=== PATIENT | female | born 1930 | race African-American/Black ===

== ENCOUNTER 2018-11-03 19:16 | Inpatient (IN) | payer MEDICARE, MEDICAID ==
[~2018-11-03] VITALS: Ht 167.6 cm; Wt 78.5 kg
[~2018-11-03 19:16] MED LIST: AMLO2.5T2 PO; AP25; ASPI-1079 PO; HYDR-4135 PO; INSLAN SQ; LEVO250T58 PO; MECL25TA3 PO; NVLG73 SUBCUT
[2018-11-03] MEDS ORDERED: SODIUM CHLORIDE 0.9% 1,000 ML IV ONE ×2 (19:42→21:00)
[2018-11-03 20:23] LABS: HEMATOCRIT. 41.9 % (36.0-48.0); HEMOGLOBIN. 13.2 g/dL (12.0-16.0); MEAN CORPUSCULAR HEMOGLOBIN 27.7 pg (28.0-32.0); MEAN PLATELET VOLUME 10.4 fl (7.4-10.4); PLATELET 152 x1000/uL (130-400); RED BLOOD CELL COUNT 4.76 mill/uL (4.2-5.4); RED CELL DISTRIBUTION WIDTH 13.5 % (11.6-14.6)
[2018-11-03 20:32] LABS: CLARITY URINE CLOUDY (CLEAR); COLOR URINE YELLOW (YELLOW); KETONES URINE NEGATIVE (NEGATIVE); LEUKOCYTE ESTERASE URINE NEGATIVE (NEGATIVE); NITRITE URINE NEGATIVE (NEGATIVE); OCCULT BLOOD URINE NEGATIVE (NEGATIVE); PROTEIN URINE NEGATIVE (NEGATIVE); SPECIFIC GRAVITY URINE 1.025 (1.005-1.030); UROBILINOGEN URINE 0.2 E.U./dL (0.2-1.0)
[2018-11-03 20:36] LABS: BETA HYDROXYBUTYRATE 0.4 mMol/L (0.0-0.3)
[2018-11-03 20:42] LABS: CHLORIDE 81 mEq/L (98-107)
[2018-11-03] MEDS ORDERED: INSULIN REGULAR (DRIP) 100 UNITS in SODIUM CHLORIDE 0.9% 100 ML IV ONE (20:44)
[2018-11-03 21:08] LABS: BG BASE EXCESS -3.6 mmol/L (-2.0-2.0); BG CARBOXYHEMOGLOBIN 0.7 % (0.5-1.5); BG DEOXYHEMOGLOBIN 3.1 % (0.0-5.0); BG FRACTION INSPIRED OXYGEN 21; BG HCO3 ACT 19.9 mmol/L (22.0-26.0); BG METHEMOGLOBIN 0.4 % (0.0-1.5); BG OXYGEN SATURATION 96.9 % (92.0-98.5); BG OXYHEMOGLOBIN 95.8 % (94.0-97.0); BG PCO2 31.1 mmHg (35.0-45.0); BG PH 7.423 (7.350-7.450); BG PO2 89.6 mmHg (75.0-100.0); BG SAMPLE SITE RIGHT RADIAL; BG TOTAL HEMOGLOBIN 12.2 g/dL (12.0-18.0); BG VENT MODE ROOM AIR
[2018-11-03 21:50] LABS: PLATELET ESTIMATE NORMAL
[2018-11-03 22:06] LABS: PHOSPHORUS 1.7 mg/dL (2.5-4.9)
[2018-11-03 22:31] VITALS: BP 158/87
[2018-11-03 23:00] VITALS: BP_SYST 147; BP_SYST 153; BP_DIAS 54; BP_DIAS 73
[2018-11-03] MEDS ORDERED: ONDANSETRON HCL 4MG/2ML INJ IV PRN (23:15)
[2018-11-03] MEDS ORDERED: INSULIN REGULAR (DRIP) 100 UNITS in SODIUM CHLORIDE 0.9% 99 ML IV PRN (23:15)
[2018-11-03 23:30] VITALS: BP 129/63
[2018-11-03] MEDS ORDERED: MAGNESIUM 1 G PREMIX 100 ML IV PRN (23:45)
[2018-11-03] MEDS ORDERED: DEXTROSE 50% WATER 50ML SYRINGE IV PRN (23:45)
[2018-11-03] MEDS ORDERED: POTASSIUM CHLORIDE INJ 40 MEQ in DEXT 5% WATER 250 ML IV PRN (23:45)
[2018-11-04] VITALS (37 sets, daily range): BP systolic 26–146; BP diastolic 17–72
[2018-11-04] MEDS ORDERED: INSULIN REGULAR (DRIP) 100 UNITS in SODIUM CHLORIDE 0.9% 100 ML IV SCH ×2
[2018-11-04] MEDS: BLOOD SUGAR DIAGNOSTIC STRIP TEST SCH ×14 (00:16→20:54)
[2018-11-04] MEDS: SODIUM CHLORIDE 0.9% 1,000 ML IV SCH ×4 (00:18→20:56)
[2018-11-04 07:38] LABS: HEMATOCRIT. 29.7 % (36.0-48.0); HEMOGLOBIN. 10.2 g/dL (12.0-16.0); MEAN CORPUSCULAR HEMOGLOBIN 27.7 pg (28.0-32.0); MEAN CORPUSCULAR VOLUME 80.4 fL (81.0-99.0); MEAN PLATELET VOLUME 9.6 fl (7.4-10.4); PLATELET 159 x1000/uL (130-400); RED CELL DISTRIBUTION WIDTH 13.1 % (11.6-14.6)
[2018-11-04] MEDS: ASPIRIN 81MG TABLET PO SCH (08:50)
[2018-11-04] MEDS: HYDRALAZINE HCL 50MG TABLET PO SCH ×2 (08:50→20:53)
[2018-11-04] MEDS: AMLODIPINE 2.5MG TABLET PO SCH ×2 (08:51→20:53)
[2018-11-04] MEDS: MECLIZINE 25MG TABLET PO SCH ×3 (08:51→17:41)
[2018-11-04] MEDS ORDERED: DEXT 5%/0.45% NACL 1000ML 1,000 ML IV SCH (11:00)
[2018-11-04] MEDS ORDERED: DEXTROSE 50% WATER 50ML SYRINGE IV PRN (11:15)
[2018-11-04] MEDS: INSULIN GLARGINE UD 100 UNITS/ML SYR SUBCUT SCH (12:24)
[2018-11-04] MEDS: PIPERACILLIN/TAZ 3.375G PREMIX 50 ML IV SCH ×2 (12:26→17:41)
[2018-11-04] MEDS: INSULIN LISPRO 100 UNITS/ML SUBCUT SCH ×5 (12:58→21:04)
[2018-11-04 22:57] LABS: NUCLEATED RED BLOOD CELLS 1 /100 WBC; PLATELET ESTIMATE NORMAL
[2018-11-05] VITALS (14 sets, daily range): BP systolic 117–196; BP diastolic 36–66
[2018-11-05] MEDS: PIPERACILLIN/TAZ 3.375G PREMIX 50 ML IV SCH ×3 (02:13→17:37)
[2018-11-05 05:48] LABS: HEMATOCRIT. 32.5 % (36.0-48.0); HEMOGLOBIN. 10.9 g/dL (12.0-16.0); MEAN CORPUSCULAR HEMOGLOBIN 27.2 pg (28.0-32.0); MEAN CORPUSCULAR VOLUME 81.1 fL (81.0-99.0); MEAN PLATELET VOLUME 9.5 fl (7.4-10.4); PLATELET 142 x1000/uL (130-400); RED CELL DISTRIBUTION WIDTH 13.7 % (11.6-14.6)
[2018-11-05 06:13] LABS: PHOSPHORUS 1.7 mg/dL (2.5-4.9)
[2018-11-05] MEDS: BLOOD SUGAR DIAGNOSTIC STRIP TEST SCH ×4 (07:50→20:35)
[2018-11-05] MEDS: MECLIZINE 25MG TABLET PO SCH ×3 (09:05→17:34)
[2018-11-05] MEDS: HYDRALAZINE HCL 25MG TABLET PO SCH ×2 (09:05→20:35)
[2018-11-05] MEDS: AMLODIPINE 2.5MG TABLET PO SCH ×2 (09:05→20:35)
[2018-11-05] MEDS: ASPIRIN 81MG TABLET PO SCH (09:05)
[2018-11-05] MEDS: INSULIN LISPRO 100 UNITS/ML SUBCUT SCH ×7 (09:09→20:36)
[2018-11-05] MEDS: SODIUM CHLORIDE 0.9% 1,000 ML IV SCH (09:29)
[2018-11-05] MEDS: INSULIN GLARGINE UD 100 UNITS/ML SYR SUBCUT SCH (09:43)
[2018-11-05] MEDS ORDERED: POTASSIUM PHOS,M-BASIC-D-BASIC 15 MMOL in DEXT 5% WATER 245 ML IV SCH (10:00)
[2018-11-05 10:08] LABS: CREATINE KINASE 35 IU/L (26-192)
[2018-11-05 10:38] LABS: PLATELET ESTIMATE NORMAL
[2018-11-05] MEDS: ACETAMINOPHEN 650MG/20.3ML UDC PO PRN ×2 (14:04→21:54)
[2018-11-06] VITALS: BP 132/61
[2018-11-06] MEDS: PIPERACILLIN/TAZ 3.375G PREMIX 50 ML IV SCH ×3 (01:50→17:19)
[2018-11-06] MEDS: SODIUM CHLORIDE 0.9% 1,000 ML IV SCH ×2 (01:57→17:19)
[2018-11-06 04:00] VITALS: BP 133/56
[2018-11-06] MEDS: BLOOD SUGAR DIAGNOSTIC STRIP TEST SCH ×4 (06:21→20:50)
[2018-11-06] MEDS: INSULIN LISPRO 100 UNITS/ML SUBCUT SCH ×7 (06:21→20:50)
[2018-11-06 07:31] LABS: HEMATOCRIT. 33.4 % (36.0-48.0); HEMOGLOBIN. 11.2 g/dL (12.0-16.0); MEAN CORPUSCULAR HEMOGLOBIN 27.5 pg (28.0-32.0); MEAN CORPUSCULAR VOLUME 81.6 fL (81.0-99.0); MEAN PLATELET VOLUME 9.5 fl (7.4-10.4); PLATELET 143 x1000/uL (130-400); RED BLOOD CELL COUNT 4.09 mill/uL (4.2-5.4); RED CELL DISTRIBUTION WIDTH 13.8 % (11.6-14.6)
[2018-11-06 08:00] VITALS: BP 121/59
[2018-11-06 08:19] LABS: *CREATININE RANDOM URINE 41.5 mg/dL (Not Estab.)
[2018-11-06] MEDS: ASPIRIN 81MG TABLET PO SCH (08:36)
[2018-11-06] MEDS: HYDRALAZINE HCL 25MG TABLET PO SCH ×2 (08:36→20:50)
[2018-11-06] MEDS: MECLIZINE 25MG TABLET PO SCH ×3 (08:36→17:19)
[2018-11-06] MEDS: AMLODIPINE 2.5MG TABLET PO SCH ×2 (08:36→20:50)
[2018-11-06] MEDS: INSULIN GLARGINE UD 100 UNITS/ML SYR SUBCUT SCH (11:56)
[2018-11-06 12:00] VITALS: BP 106/48
[2018-11-06 14:28] LABS: PLATELET ESTIMATE NORMAL
[2018-11-06 16:00] VITALS: BP 160/99
[2018-11-06 20:00] VITALS: BP 168/75
[2018-11-07] VITALS: BP 160/59
[2018-11-07] MEDS: PIPERACILLIN/TAZ 3.375G PREMIX 50 ML IV SCH ×3 (01:01→19:42)
[2018-11-07 04:00] VITALS: BP 140/74
[2018-11-07] MEDS: BLOOD SUGAR DIAGNOSTIC STRIP TEST SCH ×4 (06:34→20:12)
[2018-11-07] MEDS: INSULIN LISPRO 100 UNITS/ML SUBCUT SCH ×7 (06:35→20:29)
[2018-11-07 08:00] VITALS: BP 132/69
[2018-11-07 08:25] LABS: HEMATOCRIT. 32.6 % (36.0-48.0); HEMOGLOBIN. 10.9 g/dL (12.0-16.0); MEAN CORPUSCULAR VOLUME 80.6 fL (81.0-99.0); MEAN PLATELET VOLUME 8.6 fl (7.4-10.4); PLATELET 146 x1000/uL (130-400); RED BLOOD CELL COUNT 4.05 mill/uL (4.2-5.4); RED CELL DISTRIBUTION WIDTH 14.1 % (11.6-14.6)
[2018-11-07] MEDS: ASPIRIN 81MG TABLET PO SCH (10:27)
[2018-11-07] MEDS: MECLIZINE 25MG TABLET PO SCH ×3 (10:27→18:10)
[2018-11-07] MEDS: HYDRALAZINE HCL 25MG TABLET PO SCH ×2 (10:28→20:22)
[2018-11-07] MEDS: AMLODIPINE 2.5MG TABLET PO SCH ×2 (10:28→20:22)
[2018-11-07] MEDS: INSULIN GLARGINE UD 100 UNITS/ML SYR SUBCUT SCH (10:30)
[2018-11-07 10:51] LABS: PLATELET ESTIMATE NORMAL
[2018-11-07 12:00] VITALS: BP 155/62
[2018-11-07] MEDS ORDERED: ONDANSETRON HCL 4MG/2ML INJ IV PRN (13:45)
[2018-11-07 16:00] VITALS: BP 131/62
[2018-11-07] MEDS: SODIUM CHLORIDE 0.9% 1,000 ML IV SCH (19:43)
[2018-11-07 20:00] VITALS: BP 143/62
[2018-11-07] MEDS: ACETAMINOPHEN 650MG/20.3ML UDC PO PRN (23:54)
[2018-11-08] VITALS: BP 156/66
[2018-11-08] MEDS: PIPERACILLIN/TAZ 3.375G PREMIX 50 ML IV SCH ×3 (02:35→18:01)
[2018-11-08 04:00] VITALS: BP 150/84
[2018-11-08] MEDS: BLOOD SUGAR DIAGNOSTIC STRIP TEST SCH ×4 (05:48→20:09)
[2018-11-08] MEDS: INSULIN LISPRO 100 UNITS/ML SUBCUT SCH ×4 (06:31→20:26)
[2018-11-08] MEDS ORDERED: INSULIN LISPRO 100 UNITS/ML SUBCUT SCH (06:45)
[2018-11-08 08:00] VITALS: BP 148/73
[2018-11-08 08:14] LABS: HEMATOCRIT. 29.1 % (36.0-48.0); HEMOGLOBIN. 9.9 g/dL (12.0-16.0); MEAN CORPUSCULAR HEMOGLOBIN 27.4 pg (28.0-32.0); MEAN CORPUSCULAR VOLUME 80.6 fL (81.0-99.0); MEAN PLATELET VOLUME 9.1 fl (7.4-10.4); PLATELET 151 x1000/uL (130-400); RED BLOOD CELL COUNT 3.61 mill/uL (4.2-5.4); RED CELL DISTRIBUTION WIDTH 13.9 % (11.6-14.6)
[2018-11-08] MEDS: ASPIRIN 81MG TABLET PO SCH (09:33)
[2018-11-08] MEDS: MECLIZINE 25MG TABLET PO SCH ×3 (09:33→17:59)
[2018-11-08] MEDS: HYDRALAZINE HCL 25MG TABLET PO SCH ×2 (09:33→20:20)
[2018-11-08] MEDS: ACETAMINOPHEN 650MG/20.3ML UDC PO PRN ×2 (09:34→20:20)
[2018-11-08] MEDS: SODIUM CHLORIDE 0.9% 1,000 ML IV SCH (09:34)
[2018-11-08] MEDS: AMLODIPINE 2.5MG TABLET PO SCH ×2 (09:34→20:20)
[2018-11-08] MEDS: INSULIN GLARGINE UD 100 UNITS/ML SYR SUBCUT SCH (09:35)
[2018-11-08 10:23] LABS: PHOSPHORUS 3.7 mg/dL (2.5-4.9)
[2018-11-08 10:50] LABS: PLATELET ESTIMATE NORMAL
[2018-11-08 12:00] VITALS: BP 146/59
[2018-11-08 16:00] VITALS: BP 160/73
[2018-11-08 20:00] VITALS: BP 164/80
[2018-11-09] VITALS (7 sets, daily range): BP systolic 140–170; BP diastolic 55–76
[2018-11-09] MEDS: PIPERACILLIN/TAZ 3.375G PREMIX 50 ML IV SCH ×2 (02:33→10:11)
[2018-11-09] MEDS: ACETAMINOPHEN 650MG/20.3ML UDC PO PRN ×2 (04:05→10:11)
[2018-11-09] MEDS: SODIUM CHLORIDE 0.9% 1,000 ML IV SCH ×2 (05:45→12:25)
[2018-11-09] MEDS: BLOOD SUGAR DIAGNOSTIC STRIP TEST SCH ×4 (06:20→21:16)
[2018-11-09 06:24] LABS: HEMATOCRIT. 28.9 % (36.0-48.0); HEMOGLOBIN. 9.8 g/dL (12.0-16.0); MEAN CORPUSCULAR HEMOGLOBIN 27.5 pg (28.0-32.0); MEAN CORPUSCULAR VOLUME 80.8 fL (81.0-99.0); MEAN PLATELET VOLUME 8.9 fl (7.4-10.4); PLATELET 177 x1000/uL (130-400); RED BLOOD CELL COUNT 3.57 mill/uL (4.2-5.4); RED CELL DISTRIBUTION WIDTH 14.3 % (11.6-14.6)
[2018-11-09] MEDS: INSULIN LISPRO 100 UNITS/ML SUBCUT SCH ×4 (07:01→21:00)
[2018-11-09] MEDS: AMLODIPINE 2.5MG TABLET PO SCH ×2 (08:43→22:17)
[2018-11-09] MEDS: HYDRALAZINE HCL 25MG TABLET PO SCH ×2 (08:43→22:16)
[2018-11-09] MEDS: MECLIZINE 25MG TABLET PO SCH ×3 (08:43→16:20)
[2018-11-09] MEDS: ASPIRIN 81MG TABLET PO SCH (08:44)
[2018-11-09] MEDS: INSULIN GLARGINE UD 100 UNITS/ML SYR SUBCUT SCH (10:26)
[2018-11-09] MEDS ORDERED: BUPIVACAINE HCL/DEXTROSE/PF 0.75% 2ML AMP INJ ONE (16:27)
[2018-11-09] MEDS ORDERED: BUPIVACAINE HCL/PF 0.5% (5MG/ML) 10ML ONE (16:50)
[2018-11-09] MEDS ORDERED: LIDOCAINE HCL 1% 20ML VIAL (Pyxis) INJ ONE (16:50)
[2018-11-09] MEDS ORDERED: BACITRACIN 50,000 UNITS/VIAL ONE (16:50)
[2018-11-09] MEDS ORDERED: MIDAZOLAM HCL 2 MG/2 ML VIAL ONE (17:22)
[2018-11-09] MEDS ORDERED: VANCOMYCIN 1 G PREMIX 200 ML IV SCH (18:00)
[2018-11-09] MEDS ORDERED: MORPHINE SULFATE 2 MG/ML CPJ (NOT FOR IM USE) IV PRN (18:45)
[2018-11-09] MEDS ORDERED: ONDANSETRON HCL 4MG/2ML INJ IV PRN (18:45)
[2018-11-09 20:40] LABS: PLATELET ESTIMATE NORMAL
[2018-11-09] MEDS: PIPERACILLIN/TAZ 2.25G PREMIX 50 ML IV SCH (22:41)
[2018-11-10] VITALS: BP 161/61
[2018-11-10] MEDS: SODIUM CHLORIDE 0.9% 1,000 ML IV SCH ×2 (00:52→15:31)
[2018-11-10] MEDS: PIPERACILLIN/TAZ 2.25G PREMIX 50 ML IV SCH ×5 (03:09→23:58)
[2018-11-10] MEDS: DEXTROSE 50% WATER 50ML SYRINGE IV PRN ×3 (03:26→22:06)
[2018-11-10 04:00] VITALS: BP 147/49
[2018-11-10] MEDS: BLOOD SUGAR DIAGNOSTIC STRIP TEST SCH ×4 (06:25→21:19)
[2018-11-10] MEDS: INSULIN LISPRO 100 UNITS/ML SUBCUT SCH ×4 (06:25→21:00)
[2018-11-10] MEDS: ACETAMINOPHEN 650MG/20.3ML UDC PO PRN ×2 (07:02→18:11)
[2018-11-10 08:00] VITALS: BP_SYST 123; BP_SYST 147; BP_DIAS 63; BP_DIAS 69
[2018-11-10] MEDS: MECLIZINE 25MG TABLET PO SCH ×3 (09:34→17:26)
[2018-11-10] MEDS: ASPIRIN 81MG TABLET PO SCH (09:35)
[2018-11-10] MEDS: HYDRALAZINE HCL 25MG TABLET PO SCH ×2 (09:35→21:18)
[2018-11-10] MEDS: AMLODIPINE 2.5MG TABLET PO SCH ×2 (09:35→21:19)
[2018-11-10] MEDS: INSULIN GLARGINE UD 100 UNITS/ML SYR SUBCUT SCH (10:00)
[2018-11-10] MEDS: VANCOMYCIN 750 MG PREMIX 150 ML IV SCH (11:53)
[2018-11-10 12:00] VITALS: BP 145/67
[2018-11-10] MEDS: HYDROCODONE/ACETAMINOPHEN 5/325MG TABLET PO PRN ×2 (15:28→21:19)
[2018-11-10 16:00] VITALS: BP 148/74
[2018-11-10 20:00] VITALS: BP 144/45
[2018-11-10 21:51] LABS: HEMATOCRIT. 28.7 % (36.0-48.0); HEMOGLOBIN. 9.6 g/dL (12.0-16.0); MEAN CORPUSCULAR HEMOGLOBIN 27.3 pg (28.0-32.0); MEAN CORPUSCULAR VOLUME 81.5 fL (81.0-99.0); MEAN PLATELET VOLUME 8.9 fl (7.4-10.4); PLATELET 230 x1000/uL (130-400); RED BLOOD CELL COUNT 3.52 mill/uL (4.2-5.4); RED CELL DISTRIBUTION WIDTH 14.1 % (11.6-14.6)
[2018-11-10 21:53] LABS: CHLORIDE 108 mEq/L (98-107)
[2018-11-10 22:26] LABS: PLATELET ESTIMATE NORMAL
[2018-11-11] VITALS: BP 140/73
[2018-11-11] MEDS: HYDROCODONE/ACETAMINOPHEN 5/325MG TABLET PO PRN ×2 (01:53→10:08)
[2018-11-11] MEDS: SODIUM CHLORIDE 0.9% 1,000 ML IV SCH (03:30)
[2018-11-11 04:00] VITALS: BP 145/55
[2018-11-11 06:09] LABS: HEMATOCRIT. 29.8 % (36.0-48.0); HEMOGLOBIN. 10.1 g/dL (12.0-16.0); MEAN CORPUSCULAR HEMOGLOBIN 27.4 pg (28.0-32.0); MEAN CORPUSCULAR VOLUME 80.7 fL (81.0-99.0); MEAN PLATELET VOLUME 8.8 fl (7.4-10.4); PLATELET 261 x1000/uL (130-400); RED CELL DISTRIBUTION WIDTH 14.4 % (11.6-14.6)
[2018-11-11] MEDS: BLOOD SUGAR DIAGNOSTIC STRIP TEST SCH ×2 (06:31→12:36)
[2018-11-11] MEDS: PIPERACILLIN/TAZ 2.25G PREMIX 50 ML IV SCH ×2 (06:32→13:24)
[2018-11-11] MEDS: INSULIN LISPRO 100 UNITS/ML SUBCUT SCH ×2 (06:34→12:15)
[2018-11-11 08:00] VITALS: BP 143/73
[2018-11-11] MEDS: AMLODIPINE 2.5MG TABLET PO SCH (10:08)
[2018-11-11] MEDS: ASPIRIN 81MG TABLET PO SCH (10:08)
[2018-11-11] MEDS: HYDRALAZINE HCL 25MG TABLET PO SCH (10:09)
[2018-11-11] MEDS: MECLIZINE 25MG TABLET PO SCH ×2 (10:09→13:24)
[2018-11-11] MEDS: INSULIN GLARGINE UD 100 UNITS/ML SYR SUBCUT SCH (10:10)
[2018-11-11] MEDS: VANCOMYCIN 750 MG PREMIX 150 ML IV SCH (10:10)
[2018-11-11 10:28] LABS: PLATELET ESTIMATE NORMAL
[2018-11-11 12:00] VITALS: BP 142/80
[2018-11-11 16:00] VITALS: BP 150/68
[2018-11-11 16:31] VITALS: BP 150/68
== END 2018-11-11 16:45 | DRG 853 ==
LOC: ER 21:04 → EDBEDREQTM 21:18 → EDBEDREQSVC 21:18 → EDBEDREQ 21:18 → CVICU 21:19 → ENRESERV 21:22 → 5WST 11-05 11:00
PROVIDERS: ADMIT Internal Medicine; ATTEND Internal Medicine
PROC: 0DBP0ZZ Excision of Rectum, Open Approach (ICD-10-PCS; principal; 2018-11-09)
PROC: 0J9C0ZZ Drainage of Pelvic Region Subcutaneous Tissue and Fascia, Open Approach (ICD-10-PCS; 2018-11-09)
DX: A41.9 Sepsis, unspecified organism (principal); E11.00 Type 2 diabetes mellitus with hyperosmolarity without nonketotic hyperglycemic-hyperosmolar coma (NKHHC); E11.10 Type 2 diabetes mellitus with ketoacidosis without coma; M72.6 Necrotizing fasciitis; N17.9 Acute kidney failure, unspecified; E87.1 Hypo-osmolality and hyponatremia; K61.1 Rectal abscess; L02.31 Cutaneous abscess of buttock; L02.214 Cutaneous abscess of groin; G93.40 Encephalopathy, unspecified; E87.6 Hypokalemia; I48.91 Unspecified atrial fibrillation; K21.9 Gastro-esophageal reflux disease without esophagitis; D64.9 Anemia, unspecified; E83.39 Other disorders of phosphorus metabolism; T50.2X5A Adverse effect of carbonic-anhydrase inhibitors, benzothiadiazides and other diuretics, initial encounter; Z60.2 Problems related to living alone; I12.9 Hypertensive chronic kidney disease with stage 1 through stage 4 chronic kidney disease, or unspecified chronic kidney disease; E11.22 Type 2 diabetes mellitus with diabetic chronic kidney disease; N18.1 Chronic kidney disease, stage 1; Z79.82 Long term (current) use of aspirin; Z79.899 Other long term (current) drug therapy; Z79.84 Long term (current) use of oral hypoglycemic drugs; Z79.4 Long term (current) use of insulin; Z87.01 Personal history of pneumonia (recurrent); Z87.440 Personal history of urinary (tract) infections; Y92.89 Other specified places as the place of occurrence of the external cause
CPT/HCPCS: 36415; 36600; 71045; 72192; 76770; 80048; 82010; 82043; 82375; 82550; 82570; 82805; 82962; 83036; 83605; 83735; 83880; 83930; 84100; 84145; 84484; 87070; 87075; 88304; 93005; 93970; 96361; 96365; 97116; 97162; 97530; 99291; J1815; J2250; J2270; J2543; J3370; J3480; J3490; J7030; J7050; J7060; J8597; A4315